=== PATIENT | male | born 1950 | race African-American/Black ===

== ENCOUNTER 2018-04-17 09:12 | Observation (INO) ==
[2018-04-17 10:29] LABS: Basophils % 0.5 % (0.0-0.8); Eosinophils # 0.1 10*3/uL (0.0-0.87); Eosinophils % 2.3 % (0.00-10.9); Hematocrit 41.2 VOL% (42.0-52.0); Hemoglobin 13.7 GM/DL (14.0-18.0); Immature Granulocytes % 0.5 %; Immature Granulocytes Absolute 0.03 #; Lymphocytes # 2.1 10*3/uL (1.4-4.0); Lymphocytes % 37.6 % (21.2-54.2); Mean Corpuscular HGB Conc 33.3 GM/DL (32-36); Mean Corpuscular Hemoglobin 31 PG (27-34); Mean Corpuscular Volume 93.2 FL (87-102); Mean Platelet Volume 11.4 FL (9.6-12.0); Monocytes # 0.5 10*3/uL (0.11-0.8); Monocytes % 8.5 % (1.7-12.7); Neutrophils # 2.8 10*3/uL (1.4-7.4); Neutrophils % 50.6 % (38.7-73.9); Platelet Count 195 T/CUMM (130-400); Red Blood Count 4.42 MC/CUMM (3.8-5.5); Red Cell Distribution Width 12.7 % (9.3-17.3); White Blood Count 5.6 T/CUMM (4-12)
[2018-04-17 10:43] LABS: PT Patient Result 11.2 SECS; Partial Thromboplastin Time 24.9 SECS (0-40)
[2018-04-17 10:58] LABS: Alanine Aminotransferase 14 U/L (16-61); Albumin 2.7 G/DL (3.4-5.0); Alkaline Phosphatase 151 U/L (45-117); Aspartate Amino Transferase 16 U/L (0-37); Bilirubin,Total < 0.39 MG/DL (0.2-1.0); Blood Urea Nitrogen 19 MG/DL (7-18); Glucose 88 MG/DL (74-106); Osmolality,Calculated 273.8 MOS/KG (273-304); Potassium 4.4 MMOL/L (3.5-5.1); Sodium 137 MMOL/L (136-145); Total Protein 9.2 G/DL (6.4-8.3)
[2018-04-17] MEDS ORDERED: ONDANSETRON 4 MG/2 ML VIAL IV PRN (11:38)
[2018-04-17] MEDS ORDERED: ACETAMINOPHEN 325 MG TABLET PEG PRN (11:38)
[2018-04-17] MEDS ORDERED: POLYVINYL ALCOHOL 1.4% OPH SOLN 15 ML BOTTLE BOTH EYES PRN (11:42)
[2018-04-17] MEDS ORDERED: LACTULOSE 20 GM/30 ML UDCUP PO ONE (12:03)
[2018-04-17] MEDS ORDERED: hydrALAZINE 20 MG/1 ML VIAL ONE (13:36)
[2018-04-17] MEDS ORDERED: levETIRAcetam 500 MG/5 ML VIAL IV ONE (13:57)
[2018-04-17 14:03] LABS: Apearance,Urine CLEAR (Clear); Bilirubin,Urine Negative (Negative); Blood, Urine Negative (Negative); Glucose,Urine (UA) Negative (Negative); Ketones,Urine Negative (Negative); Nitrite,Urine Negative (Negative); Protein,Urine Negative; RBC,Urine 2 /HPF (0-4); Urine Color Yellow (Yellow); Urine Specific Gravity 1.018 (1.001-1.035); WBC,Urine 1 /HPF (0-6)
[2018-04-17] MEDS: SODIUM CHLORIDE 0.45% 1,000 ML IV SCH (14:18)
[2018-04-17] MEDS: VALPROIC ACID 250 MG/5 ML UDCUP PEG SCH (18:29)
[2018-04-17] MEDS: BENZTROPINE 1 MG TABLET PEG SCH (21:12)
[2018-04-17] MEDS: PHENobarbital 30 MG TABLET PEG SCH (21:29)
[2018-04-18] MEDS: VALPROIC ACID 250 MG/5 ML UDCUP PEG SCH ×3 (02:16→18:04)
[2018-04-18 05:36] LABS: Basophils % 0.5 % (0.0-0.8); Eosinophils # 0.1 10*3/uL (0.0-0.87); Eosinophils % 1.7 % (0.00-10.9); Hematocrit 35.5 VOL% (42.0-52.0); Hemoglobin 11.8 GM/DL (14.0-18.0); Immature Granulocytes % 0.5 %; Immature Granulocytes Absolute 0.03 #; Lymphocytes # 1.8 10*3/uL (1.4-4.0); Lymphocytes % 30.2 % (21.2-54.2); Mean Corpuscular HGB Conc 33.2 GM/DL (32-36); Mean Corpuscular Hemoglobin 31 PG (27-34); Mean Platelet Volume 11.6 FL (9.6-12.0); Monocytes # 0.6 10*3/uL (0.11-0.8); Monocytes % 10.6 % (1.7-12.7); Neutrophils # 3.4 10*3/uL (1.4-7.4); Neutrophils % 56.5 % (38.7-73.9); Platelet Count 174 T/CUMM (130-400); Red Blood Count 3.86 MC/CUMM (3.8-5.5); Red Cell Distribution Width 13.2 % (9.3-17.3); White Blood Count 5.9 T/CUMM (4-12)
[2018-04-18 05:43] LABS: Albumin 2.3 G/DL (3.4-5.0); Bilirubin,Total 1.2 MG/DL (0.2-1.0); Calcium 8.3 MG/DL (8.5-10.1); Potassium 4.2 MMOL/L (3.5-5.1); Prealbumin 25.9 MG/DL (20-40); Total Protein 7.7 G/DL (6.4-8.3)
[2018-04-18] MEDS: SODIUM CHLORIDE 0.45% 1,000 ML IV SCH ×2 (06:00→22:11)
[2018-04-18 06:22] LABS: Platelet Estimate Decreased
[2018-04-18 06:23] LABS: Polychromasia Few
[2018-04-18] MEDS ORDERED: HYDROcod/ACETAMIN 7.5-325 MG/15 ML UDCUP PEG PRN (07:30)
[2018-04-18] MEDS ORDERED: LACTULOSE 20 GM/30 ML UDCUP PO ONE (08:30)
[2018-04-18 10:28] LABS: Hepatitis A Ab IgM Quant 0.13 Index; Hepatitis A Ab IgM Result Negative (Negative); Hepatitis B Core IgM Quant 0.13 Index; Hepatitis B Core IgM Result Negative (Negative); Hepatitis B Surface Ag Quant < 0.10 Index; Hepatitis B Surface Ag Result Negative (Negative); Hepatitis C Virus Ab Quant 0.13 Index; Hepatitis C Virus Ab Result Negative (Negative)
[2018-04-18] MEDS: ASPIRIN 325 MG TABLET PEG SCH (11:17)
[2018-04-18] MEDS: PHENobarbital 30 MG TABLET PEG SCH ×2 (11:17→22:24)
[2018-04-18] MEDS: FLUTICASONE 50 MCG NASAL SPRAY 16 GM BOTTLE BOTH NARES SCH (11:18)
[2018-04-18] MEDS: BENZTROPINE 1 MG TABLET PEG SCH (22:24)
[2018-04-19] MEDS: VALPROIC ACID 250 MG/5 ML UDCUP PEG SCH ×2 (01:21→10:18)
[2018-04-19 05:30] LABS: Albumin 2.3 G/DL (3.4-5.0); Bilirubin,Total 0.8 MG/DL (0.2-1.0); Calcium 8.3 MG/DL (8.5-10.1); Osmolality,Calculated 273.8 MOS/KG (273-304); Potassium 4.2 MMOL/L (3.5-5.1); Total Protein 7.7 G/DL (6.4-8.3)
[2018-04-19 08:21] LABS: Basophils % 0.4 % (0.0-0.8); Eosinophils # 0.1 10*3/uL (0.0-0.87); Eosinophils % 2.3 % (0.00-10.9); Hematocrit 34.5 VOL% (42.0-52.0); Hemoglobin 11.5 GM/DL (14.0-18.0); Immature Granulocytes % 0.5 %; Immature Granulocytes Absolute 0.03 #; Lymphocytes # 1.8 10*3/uL (1.4-4.0); Lymphocytes % 31.6 % (21.2-54.2); Mean Corpuscular HGB Conc 33.3 GM/DL (32-36); Mean Corpuscular Hemoglobin 31 PG (27-34); Mean Corpuscular Volume 92.5 FL (87-102); Mean Platelet Volume 10.5 FL (9.6-12.0); Monocytes # 0.6 10*3/uL (0.11-0.8); Monocytes % 10.9 % (1.7-12.7); Neutrophils # 3.1 10*3/uL (1.4-7.4); Neutrophils % 54.3 % (38.7-73.9); Platelet Count 176 T/CUMM (130-400); Red Blood Count 3.73 MC/CUMM (3.8-5.5); Red Cell Distribution Width 13.1 % (9.3-17.3); White Blood Count 5.7 T/CUMM (4-12)
[2018-04-19] MEDS ORDERED: CEFUROXIME 500 MG TABLET PEG SCH (09:00)
[2018-04-19] MEDS ORDERED: PANTOPRAZOLE 40 MG VIAL IV SCH (09:00)
[2018-04-19] MEDS ORDERED: levETIRAcetam LIQUID 100 MG/ML 30 ML/BOTTLE PO SCH (09:00)
[2018-04-19] MEDS: ASPIRIN 325 MG TABLET PEG SCH (10:18)
[2018-04-19] MEDS: FLUTICASONE 50 MCG NASAL SPRAY 16 GM BOTTLE BOTH NARES SCH (10:19)
[2018-04-19] MEDS: PHENobarbital 30 MG TABLET PEG SCH (11:09)
[2018-04-19 11:53] VITALS: BP 144/73
[2018-04-19] MEDS: SODIUM CHLORIDE 0.45% 1,000 ML IV SCH (15:00)
== END 2018-04-19 13:45 ==
LOC: EDBD → EDUNIT# → N.ED 09:12 → N.EDINP 09:12 → N.2W 15:27 → N.2E 16:59
PROVIDERS: ADMIT Internal Medicine; ATTEND Internal Medicine

== ENCOUNTER 2018-06-03 17:01 | Inpatient (IN) ==
[2018-06-03 17:30] LABS: Basophils % 0.3 % (0.0-0.8); Hemoglobin 14.6 GM/DL (14.0-18.0); Immature Granulocytes % 0.3 %; Immature Granulocytes Absolute 0.02 #; Lymphocytes # 2.1 10*3/uL (1.4-4.0); Lymphocytes % 32.1 % (21.2-54.2); Mean Corpuscular HGB Conc 33.2 GM/DL (32-36); Mean Corpuscular Hemoglobin 31 PG (27-34); Mean Corpuscular Volume 92.8 FL (87-102); Mean Platelet Volume 11.1 FL (9.6-12.0); Monocytes # 0.7 10*3/uL (0.11-0.8); Monocytes % 10.1 % (1.7-12.7); Neutrophils # 3.8 10*3/uL (1.4-7.4); Neutrophils % 57.2 % (38.7-73.9); Platelet Count 219 T/CUMM (130-400); Red Blood Count 4.74 MC/CUMM (3.8-5.5); Red Cell Distribution Width 14.3 % (9.3-17.3); White Blood Count 6.7 T/CUMM (4-12)
[2018-06-03] MEDS ORDERED: ALBUTEROL 2.5 MG/3 ML NEB RESP TX STA (17:37)
[2018-06-03 17:44] LABS: INR 1.2; PT Patient Result 12.6 SECS; Partial Thromboplastin Time 25.4 SECS (0-40)
[2018-06-03 17:50] LABS: Alanine Aminotransferase 24 U/L (16-61); Albumin 2.5 G/DL (3.4-5.0); Alkaline Phosphatase 128 U/L (45-117); Aspartate Amino Transferase 24 U/L (0-37); Blood Urea Nitrogen 25 MG/DL (7-18); Calcium 8.7 MG/DL (8.5-10.1); Glucose 172 MG/DL (74-106); Osmolality,Calculated 282.7 MOS/KG (273-304); Sodium 138 MMOL/L (136-145); Total Protein 8.6 G/DL (6.4-8.3)
[2018-06-03 17:53] LABS: Band Neutrophils 11 % (0-10); Lymphocytes 40 % (20-55); Metamyelocytes 1 %; Myelocytes 2 %; Platelet Estimate Adequate; Reactive Lymphocytes 1+; Segmented Neutrophils 38 % (50-85); Total Cells Counted 100
[2018-06-03] MEDS ORDERED: LACTATED RINGERS 1,000 ML IV SCH (18:00)
[2018-06-03 18:04] LABS: ABG Base Excess 3.1 MMOL/L (-2.5-2.5); ABG HCO3 26.8 MMOL/L (20-26); ABG PCO2 27.1 MM HG (35-48); ABG PH 7.555 (7.35-7.45); ABG TCO2 20.2 MMOL/L (23-27); Allen Test Positive
[2018-06-03] MEDS ORDERED: PIPERACILLIN/TAZOBACTAM 3,375 MG in SODIUM CHLORIDE 0.9% 100 ML IV ONE (18:52)
[2018-06-03] MEDS ORDERED: SODIUM CHLORIDE 0.9% 1,500 ML IV STA (19:07)
[2018-06-03] MEDS ORDERED: LEVALBUTEROL 0.63 MG/3 ML NEB RESP TX ONE (19:09)
[2018-06-03] MEDS ORDERED: ETOMIDATE 20 MG/10 ML VIAL IV STA (20:01)
[2018-06-03] MEDS ORDERED: ROCURONIUM 100 MG/10 ML VIAL IV STA (20:01)
[2018-06-03] MEDS ORDERED: ONDANSETRON 4 MG/2 ML VIAL IV PRN (20:15)
[2018-06-03] MEDS ORDERED: MORPHINE 4 MG/1 ML VIAL IV PRN (20:15)
[2018-06-03] MEDS ORDERED: PROMETHAZINE 25 MG/1 ML VIAL IM PRN (20:15)
[2018-06-03] MEDS ORDERED: ACETAMINOPHEN 325 MG TABLET PO PRN (20:15)
[2018-06-03] MEDS ORDERED: DOCUSATE SODIUM 100 MG CAPSULE PO PRN (20:15)
[2018-06-03] MEDS ORDERED: ALBUTEROL 2.5 MG/3 ML NEB RESP TX PRN (20:18)
[2018-06-03] MEDS ORDERED: SODIUM CHLORIDE 0.9% 2,450 ML IV ONE (20:24)
[2018-06-03] MEDS ORDERED: MIDAZOLAM 100 MG in SODIUM CHLORIDE 0.9% 80 ML IV PRN (20:42)
[2018-06-03 20:48] LABS: Thyroid Stimulating Hormone 1.33 uIU/ml (0.358-3.74)
[2018-06-03 20:56] LABS: ABG Base Excess 1.3 MMOL/L (-2.5-2.5); ABG HCO3 25.6 MMOL/L (20-26); ABG Oxygen Saturation 97.6 % (95-100); ABG PCO2 30.2 MM HG (35-48); ABG PH 7.497 (7.35-7.45); ABG PO2 96.9 MM HG (80-95); ABG TCO2 19.7 MMOL/L (23-27)
[2018-06-03] MEDS ORDERED: guaiFENesin/DM ER 600-30 MG TABLET PO SCH (21:00)
[2018-06-03] MEDS: MIDAZOLAM 100 MG in SODIUM CHLORIDE 0.9% 80 ML IV PRN (21:16)
[2018-06-03] MEDS ORDERED: VANCOMYCIN INJ 1,250 MG in SODIUM CHLORIDE 0.9% 250 ML IV SCH (21:30)
[2018-06-03] MEDS: LEVOFLOXACIN INJ 750 MG in PREMIX 1 EACH IV SCH (21:50)
[2018-06-03] MEDS: PHENobarbital 30 MG TABLET PEG SCH (21:52)
[2018-06-03] MEDS: VALPROIC ACID 250 MG/5 ML UDCUP PEG SCH (21:52)
[2018-06-03] MEDS: PHENYLEPHRINE DRIP 40 MG/250 ML PREMIX IV PRN (22:00)
[2018-06-03] MEDS: PROPOFOL 1,000 MG/100 ML BOTTLE IV SCH (22:40)
[2018-06-03] MEDS ORDERED: LEVALBUTEROL 0.31 MG/3 ML NEB RESP TX SCH (23:00)
[2018-06-03] MEDS: levETIRAcetam LIQUID 100 MG/ML 30 ML/BOTTLE PEG SCH (23:20)
[2018-06-03] MEDS: LEVALBUTEROL 0.63 MG/3 ML NEB RESP TX SCH (23:54)
[2018-06-04] MEDS ORDERED: ROCURONIUM 100 MG/10 ML VIAL IV ONE (02:45)
[2018-06-04] MEDS ORDERED: ETOMIDATE 20 MG/10 ML VIAL IV ONE (02:46)
[2018-06-04 03:02] LABS: Allen Test Positive; Pt O2 Delivery Device Ventilator
[2018-06-04 03:03] LABS: ABG Base Excess -21.2 MMOL/L (-2.5-2.5); ABG HCO3 7.8 MMOL/L (20-26); ABG PH 7.246 (7.35-7.45); ABG PO2 41.2 MM HG (80-95); ABG TCO2 5.8 MMOL/L (23-27)
[2018-06-04 03:05] LABS: ABG PCO2 13.3 MM HG (35-48)
[2018-06-04 03:50] LABS: Basophils % 0.3 % (0.0-0.8); Hematocrit 35.5 VOL% (42.0-52.0); Hemoglobin 11.6 GM/DL (14.0-18.0); Immature Granulocytes % 1.7 %; Lymphocytes # 2.6 10*3/uL (1.4-4.0); Lymphocytes % 43.2 % (21.2-54.2); Mean Corpuscular HGB Conc 32.7 GM/DL (32-36); Mean Corpuscular Hemoglobin 31 PG (27-34); Mean Corpuscular Volume 95.9 FL (87-102); Mean Platelet Volume 11.8 FL (9.6-12.0); Monocytes # 0.5 10*3/uL (0.11-0.8); Neutrophils # 2.8 10*3/uL (1.4-7.4); Neutrophils % 46.8 % (38.7-73.9); Platelet Count 176 T/CUMM (130-400); Red Cell Distribution Width 14.6 % (9.3-17.3)
[2018-06-04] MEDS: PIPERACILLIN/TAZOBACTAM 3,375 MG in SODIUM CHLORIDE 0.9% 100 ML IV SCH ×3 (03:51→20:40)
[2018-06-04] MEDS: SODIUM CHLORIDE 0.9% 1,000 ML IV SCH ×3 (03:52→19:21)
[2018-06-04 04:15] LABS: Albumin 1.8 G/DL (3.4-5.0); Calcium 7.7 MG/DL (8.5-10.1); Osmolality,Calculated 290.1 MOS/KG (273-304); Potassium 3.5 MMOL/L (3.5-5.1); Risk Ratio 1.63; Total Protein 6.5 G/DL (6.4-8.3); VLDL CHOLESTEROL 17.6 MG/DL
[2018-06-04] MEDS: LEVALBUTEROL 0.63 MG/3 ML NEB RESP TX SCH ×6 (04:19→23:16)
[2018-06-04 04:50] LABS: Allen Test Positive; Pt O2 Delivery Device Ventilator
[2018-06-04 04:51] LABS: ABG Base Excess -15.4 MMOL/L (-2.5-2.5); ABG Oxygen Saturation 98.8 % (95-100); ABG PCO2 23.6 MM HG (35-48); ABG PH 7.256 (7.35-7.45); ABG TCO2 9.4 MMOL/L (23-27)
[2018-06-04] MEDS: VALPROIC ACID 250 MG/5 ML UDCUP PEG SCH ×3 (04:56→20:45)
[2018-06-04] MEDS: levETIRAcetam LIQUID 100 MG/ML 30 ML/BOTTLE PEG SCH ×3 (04:57→20:47)
[2018-06-04 05:04] LABS: Apearance,Urine CLOUDY (Clear); Bacteria,Urine Occasional /HPF (Few); Bilirubin,Urine Small mg/dL (Negative); Blood, Urine Small mg/dL (Negative); Glucose,Urine (UA) 50 mg/dL (Negative); Granular Casts,Urine 6 /LPF (0-1); Hyaline Casts,Urine 6 /LPF (0-3); Ketones,Urine 5 mg/dL (Negative); Nitrite,Urine Negative (Negative); Protein,Urine 100 MG/DL; RBC,Urine 39 /HPF (0-4); Squamous Epithelial Cell,Urine Occasional /HPF (0-10); Urine Color Amber (Yellow); Urine Specific Gravity 1.036 (1.001-1.035); WBC,Urine 14 /HPF (0-6)
[2018-06-04] MEDS: LANSOPRAZOLE ODT 30 MG TABLET PER TUBE SCH (09:11)
[2018-06-04] MEDS: PHENobarbital 30 MG TABLET PEG SCH ×2 (09:11→20:44)
[2018-06-04] MEDS: ENOXAPARIN 40 MG/0.4 ML SYRINGE SUBCUT SCH (09:11)
[2018-06-04] MEDS: VANCOMYCIN INJ 1,250 MG in SODIUM CHLORIDE 0.9% 250 ML IV SCH ×2 (09:12→20:49)
[2018-06-04] MEDS: PHENYLEPHRINE DRIP 40 MG/250 ML PREMIX IV PRN (09:19)
[2018-06-04 11:08] LABS: Barbiturates Screen,Urine Positive (Negative); Benzodiazepines Screen,Urine Positive (Negative); Cannabinoid Screen,Urine Negative (Negative); Opiate Screen,Urine Negative (Negative); Phencyclidine Screen,Urine Negative (Negative)
[2018-06-04] MEDS: PHENYLEPHRINE INJ 160 MG in SODIUM CHLORIDE 0.9% 234 ML IV PRN (12:52)
[2018-06-04] MEDS ORDERED: POTASSIUM CHLORIDE 20 MEQ TABLET PO ONE (13:52)
[2018-06-04] MEDS ORDERED: DEXTROSE 50% 25 GM/50 ML SYRINGE IV PRN (15:01)
[2018-06-04] MEDS ORDERED: GLUCAGON 1 MG VIAL IM PRN (15:01)
[2018-06-04] MEDS: INSULIN REGULAR 100 UNIT/ML SUBCUT SCH ×2 (18:17→23:58)
[2018-06-04] MEDS: LEVOFLOXACIN INJ 750 MG in PREMIX 1 EACH IV SCH (20:45)
[2018-06-04] MEDS: PROPOFOL 1,000 MG/100 ML BOTTLE IV SCH (21:12)
[2018-06-05] MEDS: PHENYLEPHRINE INJ 160 MG in SODIUM CHLORIDE 0.9% 234 ML IV PRN (01:31)
[2018-06-05] MEDS: LEVALBUTEROL 0.63 MG/3 ML NEB RESP TX SCH ×5 (02:52→19:44)
[2018-06-05] MEDS: SODIUM CHLORIDE 0.9% 1,000 ML IV SCH ×3 (03:19→20:14)
[2018-06-05] MEDS: VALPROIC ACID 250 MG/5 ML UDCUP PEG SCH ×3 (04:55→20:30)
[2018-06-05] MEDS: levETIRAcetam LIQUID 100 MG/ML 30 ML/BOTTLE PEG SCH ×3 (04:55→20:30)
[2018-06-05] MEDS: PIPERACILLIN/TAZOBACTAM 3,375 MG in SODIUM CHLORIDE 0.9% 100 ML IV SCH ×3 (04:56→20:18)
[2018-06-05 05:01] LABS: Allen Test Positive; Pt O2 Delivery Device Ventilator
[2018-06-05 05:02] LABS: ABG HCO3 20.3 MMOL/L (20-26); ABG PCO2 27.9 MM HG (35-48); ABG PH 7.425 (7.35-7.45); ABG TCO2 16.7 MMOL/L (23-27)
[2018-06-05 05:07] LABS: Basophils # 0.1 10*3/uL (0.0-0.2); Basophils % 0.9 % (0.0-0.8); Hematocrit 28.7 VOL% (42.0-52.0); Hemoglobin 9.2 GM/DL (14.0-18.0); Immature Granulocytes % 1.1 %; Immature Granulocytes Absolute 0.13 #; Lymphocytes # 1.6 10*3/uL (1.4-4.0); Lymphocytes % 13.4 % (21.2-54.2); Mean Corpuscular HGB Conc 32.1 GM/DL (32-36); Mean Corpuscular Hemoglobin 32 PG (27-34); Mean Corpuscular Volume 98.3 FL (87-102); Mean Platelet Volume 11.7 FL (9.6-12.0); Monocytes % 8.4 % (1.7-12.7); Neutrophils # 9.1 10*3/uL (1.4-7.4); Neutrophils % 76.2 % (38.7-73.9); Platelet Count 141 T/CUMM (130-400); Red Blood Count 2.92 MC/CUMM (3.8-5.5); Red Cell Distribution Width 15.4 % (9.3-17.3)
[2018-06-05 05:24] LABS: INR 1.6; PT Patient Result 16.8 SECS; Partial Thromboplastin Time 35.2 SECS (0-40)
[2018-06-05] MEDS: INSULIN REGULAR 100 UNIT/ML SUBCUT SCH ×3 (05:29→18:00)
[2018-06-05 05:33] LABS: Prealbumin 10.9 MG/DL (20-40)
[2018-06-05 05:44] LABS: Band Neutrophils 14 % (0-10); Lymphocytes 13 % (20-55); Macrocytosis Slight; Metamyelocytes 3 %; Myelocytes 2 %; Segmented Neutrophils 59 % (50-85); Total Cells Counted 100
[2018-06-05 05:45] LABS: Platelet Estimate Adequate
[2018-06-05] MEDS ORDERED: MIDAZOLAM 10 MG/2 ML VIAL ONE (07:32)
[2018-06-05] MEDS ORDERED: MIDAZOLAM 2 MG/2 ML VIAL IV ONE ×2 (07:35→07:38)
[2018-06-05] MEDS: MIDAZOLAM 100 MG in SODIUM CHLORIDE 0.9% 80 ML IV PRN (08:20)
[2018-06-05] MEDS: PHENobarbital 30 MG TABLET PEG SCH ×2 (09:05→20:24)
[2018-06-05] MEDS: LANSOPRAZOLE ODT 30 MG TABLET PER TUBE SCH (09:05)
[2018-06-05] MEDS: VANCOMYCIN INJ 1,250 MG in SODIUM CHLORIDE 0.9% 250 ML IV SCH ×2 (09:06→20:30)
[2018-06-05] MEDS: ENOXAPARIN 40 MG/0.4 ML SYRINGE SUBCUT SCH (09:35)
[2018-06-05] MEDS: methylPREDNISolone SOD SUC 40 MG/1 ML VIAL IV SCH ×2 (16:44→23:55)
[2018-06-05 17:11] LABS: Calcium 7.3 MG/DL (8.5-10.1); Osmolality,Calculated 307.1 MOS/KG (273-304); Potassium 2.9 MMOL/L (3.5-5.1)
[2018-06-05] MEDS: POTASSIUM CHLORIDE RIDER 20 MEQ in PREMIX 1 EACH IV PRN ×2 (18:12→20:16)
[2018-06-05] MEDS: LEVOFLOXACIN INJ 750 MG in PREMIX 1 EACH IV SCH (20:36)
[2018-06-05] MEDS: PROPOFOL 1,000 MG/100 ML BOTTLE IV SCH (22:10)
[2018-06-05] MEDS: POTASSIUM CHLORIDE RIDER 10 MEQ in PREMIX 1 EACH IV PRN (22:24)
[2018-06-06] MEDS: MIDAZOLAM 100 MG in SODIUM CHLORIDE 0.9% 80 ML IV PRN ×2 (00:31→17:01)
[2018-06-06] MEDS: LEVALBUTEROL 0.63 MG/3 ML NEB RESP TX SCH ×7 (00:35→23:54)
[2018-06-06] MEDS: INSULIN REGULAR 100 UNIT/ML SUBCUT SCH ×4 (00:55→17:46)
[2018-06-06] MEDS: POTASSIUM CHLORIDE RIDER 20 MEQ in PREMIX 1 EACH IV PRN ×2 (02:38→04:49)
[2018-06-06 04:05] LABS: ABG Base Excess -4.3 MMOL/L (-2.5-2.5); ABG HCO3 20.8 MMOL/L (20-26); ABG Oxygen Saturation 99.7 % (95-100); ABG PH 7.508 (7.35-7.45); ABG TCO2 15.8 MMOL/L (23-27); Allen Test Positive; Pt O2 Delivery Device Ventilator
[2018-06-06] MEDS: levETIRAcetam LIQUID 100 MG/ML 30 ML/BOTTLE PEG SCH ×3 (04:50→20:31)
[2018-06-06] MEDS: VALPROIC ACID 250 MG/5 ML UDCUP PEG SCH ×3 (04:50→20:30)
[2018-06-06] MEDS: PIPERACILLIN/TAZOBACTAM 3,375 MG in SODIUM CHLORIDE 0.9% 100 ML IV SCH ×3 (04:51→20:30)
[2018-06-06 04:53] LABS: Basophils % 0.4 % (0.0-0.8); Hematocrit 26.5 VOL% (42.0-52.0); Hemoglobin 8.4 GM/DL (14.0-18.0); Immature Granulocytes Absolute 0.08 #; Lymphocytes # 0.9 10*3/uL (1.4-4.0); Lymphocytes % 11.1 % (21.2-54.2); Mean Corpuscular HGB Conc 31.7 GM/DL (32-36); Mean Corpuscular Hemoglobin 31 PG (27-34); Mean Corpuscular Volume 97.8 FL (87-102); Mean Platelet Volume 11.8 FL (9.6-12.0); Monocytes # 0.6 10*3/uL (0.11-0.8); Monocytes % 7.1 % (1.7-12.7); NRBC # 0.02 10*3/uL; Neutrophils # 6.5 10*3/uL (1.4-7.4); Neutrophils % 80.4 % (38.7-73.9); Red Blood Count 2.71 MC/CUMM (3.8-5.5); Red Cell Distribution Width 15.5 % (9.3-17.3)
[2018-06-06 04:57] LABS: Platelet Count 94 T/CUMM (130-400)
[2018-06-06] MEDS: SODIUM CHLORIDE 0.9% 1,000 ML IV SCH ×3 (05:03→21:00)
[2018-06-06 05:16] LABS: Albumin 1.5 G/DL (3.4-5.0); Bilirubin,Total 0.6 MG/DL (0.2-1.0); Calcium 7.5 MG/DL (8.5-10.1); Osmolality,Calculated 310.7 MOS/KG (273-304); Potassium 3.5 MMOL/L (3.5-5.1); Total Protein 6.3 G/DL (6.4-8.3)
[2018-06-06 06:23] LABS: Band Neutrophils 1 % (0-10); Segmented Neutrophils 86 % (50-85); Total Cells Counted 100
[2018-06-06 06:24] LABS: Hypochromasia 1+; Lymphocytes 8 % (20-55); Nucleated Red Blood Cells 2 (0-5); Platelet Estimate Decreased
[2018-06-06 06:25] LABS: Macrocytosis Slight
[2018-06-06] MEDS: methylPREDNISolone SOD SUC 40 MG/1 ML VIAL IV SCH ×2 (08:43→20:28)
[2018-06-06] MEDS: LANSOPRAZOLE ODT 30 MG TABLET PER TUBE SCH (08:43)
[2018-06-06] MEDS: PHENobarbital 30 MG TABLET PEG SCH ×2 (08:43→20:53)
[2018-06-06] MEDS: VANCOMYCIN INJ 1,250 MG in SODIUM CHLORIDE 0.9% 250 ML IV SCH (10:36)
[2018-06-06] MEDS: PROPOFOL 1,000 MG/100 ML BOTTLE IV SCH (20:18)
[2018-06-06] MEDS: LEVOFLOXACIN INJ 750 MG in PREMIX 1 EACH IV SCH (20:33)
[2018-06-06] MEDS: SODIUM CHLORIDE 0.45% 1,000 ML IV SCH (20:59)
[2018-06-07] MEDS: INSULIN REGULAR 100 UNIT/ML SUBCUT SCH ×4 (00:44→17:32)
[2018-06-07] MEDS: LEVALBUTEROL 0.63 MG/3 ML NEB RESP TX SCH ×6 (03:34→23:29)
[2018-06-07 03:37] LABS: Allen Test Positive; Pt O2 Delivery Device Ventilator
[2018-06-07 03:39] LABS: ABG Base Excess -5.3 MMOL/L (-2.5-2.5); ABG HCO3 18.2 MMOL/L (20-26); ABG Oxygen Saturation 84.9 % (95-100); ABG PCO2 27.9 MM HG (35-48); ABG PH 7.432 (7.35-7.45); ABG PO2 52.5 MM HG (80-95)
[2018-06-07 04:05] LABS: Basophils % 0.2 % (0.0-0.8); Hematocrit 24.5 VOL% (42.0-52.0); Hemoglobin 7.7 GM/DL (14.0-18.0); Immature Granulocytes % 1.5 %; Immature Granulocytes Absolute 0.13 #; Lymphocytes # 0.9 10*3/uL (1.4-4.0); Lymphocytes % 10.7 % (21.2-54.2); Mean Corpuscular HGB Conc 31.4 GM/DL (32-36); Mean Corpuscular Hemoglobin 31 PG (27-34); Mean Platelet Volume 12.3 FL (9.6-12.0); Monocytes # 0.6 10*3/uL (0.11-0.8); Monocytes % 7.6 % (1.7-12.7); Neutrophils # 6.7 10*3/uL (1.4-7.4); Red Blood Count 2.45 MC/CUMM (3.8-5.5); Red Cell Distribution Width 15.7 % (9.3-17.3); White Blood Count 8.4 T/CUMM (4-12)
[2018-06-07 04:12] LABS: Platelet Count 70 T/CUMM (130-400)
[2018-06-07 04:30] LABS: Calcium 7.5 MG/DL (8.5-10.1); Osmolality,Calculated 313.6 MOS/KG (273-304); Potassium 2.9 MMOL/L (3.5-5.1)
[2018-06-07 04:41] LABS: Band Neutrophils 2 % (0-10); Hypochromasia 1+; Lymphocytes 7 % (20-55); Platelet Estimate Decreased; Segmented Neutrophils 87 % (50-85); Total Cells Counted 100
[2018-06-07 04:42] LABS: Ovalocytes Slight
[2018-06-07] MEDS: SODIUM CHLORIDE 0.45% 1,000 ML IV SCH (04:44)
[2018-06-07] MEDS: POTASSIUM CHLORIDE RIDER 20 MEQ in PREMIX 1 EACH IV PRN ×3 (04:53→16:52)
[2018-06-07] MEDS: MIDAZOLAM 100 MG in SODIUM CHLORIDE 0.9% 80 ML IV PRN ×2 (05:00→17:53)
[2018-06-07] MEDS: PIPERACILLIN/TAZOBACTAM 3,375 MG in SODIUM CHLORIDE 0.9% 100 ML IV SCH ×3 (05:03→20:34)
[2018-06-07] MEDS: VALPROIC ACID 250 MG/5 ML UDCUP PEG SCH ×3 (05:19→20:40)
[2018-06-07] MEDS: levETIRAcetam LIQUID 100 MG/ML 30 ML/BOTTLE PEG SCH ×3 (05:21→20:40)
[2018-06-07] MEDS: PHENobarbital 30 MG TABLET PEG SCH ×2 (08:38→20:39)
[2018-06-07] MEDS: LANSOPRAZOLE ODT 30 MG TABLET PER TUBE SCH (08:38)
[2018-06-07] MEDS: ENOXAPARIN 40 MG/0.4 ML SYRINGE SUBCUT SCH (08:38)
[2018-06-07] MEDS: methylPREDNISolone SOD SUC 40 MG/1 ML VIAL IV SCH ×2 (08:38→20:30)
[2018-06-07] MEDS: POTASSIUM CHLORIDE RIDER 10 MEQ in PREMIX 1 EACH IV PRN (10:45)
[2018-06-07] MEDS: PROPOFOL 1,000 MG/100 ML BOTTLE IV SCH (20:38)
[2018-06-07] MEDS: ZINC OXIDE PASTE 113 GM TUBE TOP SCH (21:35)
[2018-06-07] MEDS ORDERED: LORazepam 2 MG/1 ML VIAL ONE (22:05)
[2018-06-07] MEDS: LORazepam 2 MG/1 ML VIAL IV PRN (22:06)
[2018-06-08] MEDS: INSULIN REGULAR 100 UNIT/ML SUBCUT SCH ×3 (00:12→11:56)
[2018-06-08] MEDS: LEVALBUTEROL 0.63 MG/3 ML NEB RESP TX SCH ×3 (02:57→11:05)
[2018-06-08 03:22] LABS: ABG Base Excess -4.3 MMOL/L (-2.5-2.5); ABG HCO3 20.9 MMOL/L (20-26); ABG Oxygen Saturation 96.3 % (95-100); ABG PCO2 27.6 MM HG (35-48); ABG PH 7.433 (7.35-7.45); ABG PO2 86.9 MM HG (80-95); ABG TCO2 15.7 MMOL/L (23-27); Allen Test Positive; Pt O2 Delivery Device Ventilator
[2018-06-08 04:16] LABS: Basophils % 0.2 % (0.0-0.8); Hematocrit 23.8 VOL% (42.0-52.0); Hemoglobin 7.5 GM/DL (14.0-18.0); Immature Granulocytes Absolute 0.57 #; Lymphocytes # 1.5 10*3/uL (1.4-4.0); Lymphocytes % 15.5 % (21.2-54.2); Mean Corpuscular HGB Conc 31.5 GM/DL (32-36); Mean Corpuscular Hemoglobin 31 PG (27-34); Mean Corpuscular Volume 98.8 FL (87-102); Monocytes % 10.3 % (1.7-12.7); Neutrophils # 6.5 10*3/uL (1.4-7.4); Platelet Count 67 T/CUMM (130-400); Red Blood Count 2.41 MC/CUMM (3.8-5.5); Red Cell Distribution Width 15.7 % (9.3-17.3); White Blood Count 9.5 T/CUMM (4-12)
[2018-06-08 04:34] LABS: Calcium 7.4 MG/DL (8.5-10.1); Osmolality,Calculated 315.3 MOS/KG (273-304); Potassium 3.1 MMOL/L (3.5-5.1)
[2018-06-08] MEDS: LORazepam 2 MG/1 ML VIAL IV PRN (04:37)
[2018-06-08 04:42] LABS: Band Neutrophils 6 % (0-10); Hypochromasia 1+; Lymphocytes 20 % (20-55); Myelocytes 1 %; Platelet Estimate Decreased; Segmented Neutrophils 65 % (50-85); Total Cells Counted 100
[2018-06-08] MEDS: PIPERACILLIN/TAZOBACTAM 3,375 MG in SODIUM CHLORIDE 0.9% 100 ML IV SCH ×2 (04:44→13:44)
[2018-06-08] MEDS: VALPROIC ACID 250 MG/5 ML UDCUP PEG SCH ×2 (04:49→13:45)
[2018-06-08] MEDS: levETIRAcetam LIQUID 100 MG/ML 30 ML/BOTTLE PEG SCH ×2 (04:49→13:45)
[2018-06-08] MEDS: POTASSIUM CHLORIDE RIDER 20 MEQ in PREMIX 1 EACH IV PRN ×2 (05:24→07:28)
[2018-06-08] MEDS: MIDAZOLAM 100 MG in SODIUM CHLORIDE 0.9% 80 ML IV PRN (08:00)
[2018-06-08] MEDS: LANSOPRAZOLE ODT 30 MG TABLET PER TUBE SCH (08:14)
[2018-06-08] MEDS: methylPREDNISolone SOD SUC 40 MG/1 ML VIAL IV SCH (08:14)
[2018-06-08] MEDS: PHENobarbital 30 MG TABLET PEG SCH (08:14)
[2018-06-08] MEDS: ZINC OXIDE PASTE 113 GM TUBE TOP SCH (08:14)
[2018-06-08 10:12] VITALS: BP 155/83
[2018-06-09] MEDS ORDERED: predniSONE 20 MG TABLET PO SCH (09:00)
== END 2018-06-08 14:30 | DRG 207 ==
LOC: EDBD → EDUNIT# → N.ED 17:01 → N.EDINP 20:14 → SUATTDRO 20:14 → N.CC 21:05
PROVIDERS: ADMIT Internal Medicine; ATTEND Hospitalist

== ENCOUNTER 2019-09-19 22:55 | Inpatient (IN) ==
[2019-09-19] MEDS ORDERED: ONDANSETRON 4 MG/2 ML VIAL IV STA (23:12)
[2019-09-19] MEDS ORDERED: methylPREDNISolone SOD SUC 125 MG/2 ML VIAL IV STA (23:12)
[2019-09-19] MEDS ORDERED: FUROSEMIDE 100 MG/10 ML VIAL IV STA (23:12)
[2019-09-19] MEDS ORDERED: PANTOPRAZOLE 40 MG VIAL IV STA (23:19)
[2019-09-19] MEDS ORDERED: ALBUTEROL NEB SOLN 5 MG/ML 20 ML/BOTTLE CONT NEB SCH (23:30)
[2019-09-19 23:36] LABS: Basophils % 0.1 % (0.0-0.8); Eosinophils % 0.1 % (0.00-10.9); Hematocrit 36.8 VOL% (42.0-52.0); Hemoglobin 11.7 GM/DL (14.0-18.0); Immature Granulocytes % 0.9 %; Immature Granulocytes Absolute 0.09 #; Lymphocytes # 2.1 10*3/uL (1.4-4.0); Lymphocytes % 20.7 % (21.2-54.2); Mean Corpuscular HGB Conc 31.8 GM/DL (32-36); Mean Corpuscular Volume 98.1 FL (87-102); Mean Platelet Volume 12.5 FL (9.6-12.0); Monocytes % 6.2 % (1.7-12.7); Platelet Count 164 T/CUMM (130-400); Red Blood Count 3.75 MC/CUMM (3.8-5.5); Red Cell Distribution Width 14.4 % (9.3-17.3)
[2019-09-19 23:38] LABS: Allen Test Positive
[2019-09-19 23:39] LABS: ABG Base Excess 6.4 MMOL/L (-2.5-2.5); ABG HCO3 30.2 MMOL/L (20-26); ABG Oxygen Saturation 97.3 % (95-100); ABG PCO2 37.4 MM HG (35-48); ABG PH 7.508 (7.35-7.45); ABG PO2 85.7 MM HG (80-95); ABG TCO2 26.2 MMOL/L (23-27)
[2019-09-19] MEDS ORDERED: PIPERACILLIN/TAZOBACTAM 3,375 MG in SODIUM CHLORIDE 0.9% 100 ML IV STA (23:40)
[2019-09-19 23:46] LABS: PT Patient Result 10.8 SECS (9.8-11.9)
[2019-09-19 23:55] LABS: Alanine Aminotransferase 33 U/L (16-61); Albumin 2.4 G/DL (3.4-5.0); Alkaline Phosphatase 96 U/L (45-117); Aspartate Amino Transferase 47 U/L (0-37); Bilirubin,Total < 0.39 MG/DL (0.2-1.0); Blood Urea Nitrogen 28 MG/DL (7-18); Calcium 8.9 MG/DL (8.5-10.1); Estimated Glom Filtration Rate 110 ML/MIN; Glucose 163 MG/DL (74-106); Osmolality,Calculated 286.5 MOS/KG (273-304); Total Protein 8.9 G/DL (6.4-8.3)
[2019-09-20] MEDS ORDERED: SODIUM CHLORIDE 0.9% 2,000 ML IV ONE (00:32)
[2019-09-20] MEDS ORDERED: ZALEPLON 5 MG CAPSULE PEG PRN (00:34)
[2019-09-20] MEDS ORDERED: GLUCAGON 1 MG VIAL IM PRN (00:34)
[2019-09-20] MEDS ORDERED: guaiFENesin/DM ER 600-30 MG TABLET PO PRN (00:34)
[2019-09-20] MEDS ORDERED: MORPHINE 4 MG/1 ML VIAL IV PRN (00:34)
[2019-09-20] MEDS ORDERED: DEXTROSE 50% 25 GM/50 ML VIAL IV PRN (00:34)
[2019-09-20] MEDS ORDERED: hydrALAZINE 20 MG/1 ML VIAL IV PRN (00:34)
[2019-09-20] MEDS ORDERED: PROMETHAZINE 25 MG/1 ML VIAL IM PRN (00:34)
[2019-09-20] MEDS ORDERED: ONDANSETRON 4 MG/2 ML VIAL IV PRN (00:34)
[2019-09-20] MEDS ORDERED: diphenhydrAMINE CAP 25 MG CAPSULE PO PRN (00:34)
[2019-09-20] MEDS ORDERED: NICOTINE 21 MG/24 HR PATCH TRANSDERM PRN (00:34)
[2019-09-20 01:08] LABS: Apearance,Urine CLEAR (Clear); Bacteria,Urine Occasional /HPF (Few); Bilirubin,Urine Negative (Negative); Blood, Urine Negative (Negative); Glucose,Urine (UA) Negative (Negative); Ketones,Urine 5 mg/dL (Negative); Mucus,Urine Occasional /LPF (Occasional); Nitrite,Urine Negative (Negative); Protein,Urine >=500 MG/DL; RBC,Urine 26 /HPF (0-4); Renal Epithelial Cells,Urine Occasional /HPF (<1); Squamous Epithelial Cell,Urine Occasional /HPF (0-10); Urine Color Amber (Yellow); Urine Specific Gravity 1.033 (1.001-1.035); Urine Urobilinogen < 2.0 EU/DL (0.2-1.0); WBC,Urine 2 /HPF (0-6)
[2019-09-20] MEDS: AZITHROMYCIN INJ 500 MG in SODIUM CHLORIDE 0.9% 250 ML IV SCH (02:26)
[2019-09-20] MEDS: ACETAMINOPHEN 325 MG TABLET PEG PRN ×2 (02:31→08:29)
[2019-09-20] MEDS: SODIUM CHLORIDE 0.9% 1,000 ML IV SCH ×3 (03:14→23:26)
[2019-09-20] MEDS ORDERED: VANCOMYCIN INJ 1,750 MG in SODIUM CHLORIDE 0.9% 500 ML IV SCH (05:00)
[2019-09-20 06:24] LABS: Calcium 8.1 MG/DL (8.5-10.1); Osmolality,Calculated 292.4 MOS/KG (273-304)
[2019-09-20] MEDS ORDERED: SODIUM CHLORIDE 0.9% 1,000 ML IV ONE ×2 (07:29→15:29)
[2019-09-20] MEDS ORDERED: levETIRAcetam LIQUID 100 MG/ML 30 ML/BOTTLE PEG SCH ×2 (08:00→09:00)
[2019-09-20 08:15] LABS: ABG Base Excess 2.6 MMOL/L (-2.5-2.5); ABG HCO3 26.7 MMOL/L (20-26); ABG PCO2 37.1 MM HG (35-48); ABG PH 7.459 (7.35-7.45); ABG PO2 77.6 MM HG (80-95); ABG TCO2 23.8 MMOL/L (23-27)
[2019-09-20 08:22] LABS: Ferritin 1596.5 ng/ml (26-388)
[2019-09-20] MEDS: INSULIN LISPRO 100 UNIT/ML SUBCUT SCH ×4 (08:29→21:40)
[2019-09-20] MEDS: ENOXAPARIN 40 MG/0.4 ML SYRINGE SUBCUT SCH (08:29)
[2019-09-20] MEDS ORDERED: OMEPRAZOLE ODT 20 MG TABLET PEG SCH (09:00)
[2019-09-20] MEDS ORDERED: PANTOPRAZOLE 40 MG TABLET PO SCH (09:00)
[2019-09-20] MEDS: PIPERACILLIN/TAZOBACTAM 3,375 MG in SODIUM CHLORIDE 0.9% 100 ML IV SCH ×2 (09:20→17:41)
[2019-09-20 09:49] LABS: Basophils % 0.1 % (0.0-0.8); Eosinophils % 0.4 % (0.00-10.9); Hematocrit 32.2 VOL% (42.0-52.0); Hemoglobin 9.9 GM/DL (14.0-18.0); Immature Granulocytes % 0.5 %; Immature Granulocytes Absolute 0.05 #; Lymphocytes # 1.1 10*3/uL (1.4-4.0); Lymphocytes % 11.4 % (21.2-54.2); Mean Corpuscular HGB Conc 30.7 GM/DL (32-36); Mean Corpuscular Volume 100.6 FL (87-102); Mean Platelet Volume 12.8 FL (9.6-12.0); Monocytes % 9.3 % (1.7-12.7); Neutrophils % 78.3 % (38.7-73.9); Red Cell Distribution Width 14.6 % (9.3-17.3); White Blood Count 9.5 T/CUMM (4-12)
[2019-09-20 09:51] LABS: Platelet Count 113 T/CUMM (130-400)
[2019-09-20 10:34] LABS: Band Neutrophils 11 % (0-10); Lymphocytes 7 % (20-55); Myelocytes 1 %; Segmented Neutrophils 71 % (50-85); Total Cells Counted 100
[2019-09-20 10:35] LABS: Hypochromasia 1+
[2019-09-20] MEDS ORDERED: guaiFENesin 200 MG/10 ML UDCUP PEG PRN (18:27)
[2019-09-20] MEDS: CALCIUM (CARBONATE)/VITAMIN D 600 MG-400 UNIT TABLET PEG SCH (22:23)
[2019-09-20] MEDS: CETIRIZINE 10 MG TABLET PEG SCH (22:24)
[2019-09-20] MEDS: PHENobarbital 30 MG TABLET PEG SCH (22:25)
[2019-09-20] MEDS: levETIRAcetam LIQUID 100 MG/ML 30 ML/BOTTLE PEG SCH (22:25)
[2019-09-20] MEDS: VALPROIC ACID 250 MG/5 ML UDCUP PEG SCH (22:27)
[2019-09-20] MEDS: OMEPRAZOLE ODT 20 MG TABLET PEG SCH (22:30)
[2019-09-21] MEDS: AZITHROMYCIN INJ 500 MG in SODIUM CHLORIDE 0.9% 250 ML IV SCH (00:50)
[2019-09-21] MEDS: PIPERACILLIN/TAZOBACTAM 3,375 MG in SODIUM CHLORIDE 0.9% 100 ML IV SCH ×3 (01:55→16:31)
[2019-09-21] MEDS: SODIUM CHLORIDE 0.9% 1,000 ML IV SCH ×2 (02:00→15:24)
[2019-09-21 04:29] LABS: ABG HCO3 28.2 MMOL/L (20-26); ABG Oxygen Saturation 90.6 % (95-100); ABG PH 7.456 (7.35-7.45); ABG PO2 60.2 MM HG (80-95); ABG TCO2 29.5 MMOL/L (23-27); Allen Test Positive
[2019-09-21 05:38] LABS: Eosinophils % 0.1 % (0.00-10.9); Hematocrit 29.6 VOL% (42.0-52.0); Hemoglobin 9.3 GM/DL (14.0-18.0); Immature Granulocytes % 0.6 %; Immature Granulocytes Absolute 0.04 #; Lymphocytes # 1.5 10*3/uL (1.4-4.0); Lymphocytes % 20.5 % (21.2-54.2); Mean Corpuscular HGB Conc 31.4 GM/DL (32-36); Mean Corpuscular Volume 98.3 FL (87-102); Monocytes % 5.7 % (1.7-12.7); Neutrophils % 73.1 % (38.7-73.9); Platelet Count 130 T/CUMM (130-400); Red Blood Count 3.01 MC/CUMM (3.8-5.5); Red Cell Distribution Width 14.3 % (9.3-17.3); White Blood Count 7.1 T/CUMM (4-12)
[2019-09-21 06:07] LABS: Calcium 7.6 MG/DL (8.5-10.1); Osmolality,Calculated 291.7 MOS/KG (273-304)
[2019-09-21] MEDS: VALPROIC ACID 250 MG/5 ML UDCUP PEG SCH ×3 (06:25→21:37)
[2019-09-21] MEDS: INSULIN LISPRO 100 UNIT/ML SUBCUT SCH ×3 (08:21→18:31)
[2019-09-21] MEDS: PHENobarbital 30 MG TABLET PEG SCH ×3 (08:22→21:35)
[2019-09-21] MEDS: ENOXAPARIN 40 MG/0.4 ML SYRINGE SUBCUT SCH (08:22)
[2019-09-21] MEDS: OMEPRAZOLE ODT 20 MG TABLET PEG SCH (08:22)
[2019-09-21] MEDS: CALCIUM (CARBONATE)/VITAMIN D 600 MG-400 UNIT TABLET PEG SCH ×2 (08:22→21:34)
[2019-09-21] MEDS: levETIRAcetam LIQUID 100 MG/ML 30 ML/BOTTLE PEG SCH ×2 (08:24→21:34)
[2019-09-21 08:35] LABS: Band Neutrophils 15 % (0-10); Lymphocytes 19 % (20-55); Metamyelocytes 2 %; Segmented Neutrophils 58 % (50-85); Total Cells Counted 100
[2019-09-21 08:36] LABS: Hypochromasia 1+
[2019-09-21 08:37] LABS: Microcytosis Slight; Platelet Estimate Adequate
[2019-09-21] MEDS ORDERED: ZINC SULFATE 220 MG CAPSULE PO SCH (09:30)
[2019-09-21] MEDS: ACETAMINOPHEN 325 MG/10.15 ML UDCUP PEG PRN ×2 (10:11→17:25)
[2019-09-21] MEDS ORDERED: DEXTROSE 50% 25 GM/50 ML VIAL IV PRN (10:42)
[2019-09-21] MEDS: ZINC SULFATE 220 MG CAPSULE PO SCH (10:45)
[2019-09-21] MEDS: VANCOMYCIN INJ 1,250 MG in SODIUM CHLORIDE 0.9% 250 ML IV SCH (13:22)
[2019-09-21] MEDS: ACETAMINOPHEN 325 MG/10.15 ML UDCUP PER TUBE PRN (21:30)
[2019-09-21] MEDS: CETIRIZINE 10 MG TABLET PEG SCH (21:35)
[2019-09-22] MEDS: VANCOMYCIN INJ 1,250 MG in SODIUM CHLORIDE 0.9% 250 ML IV SCH ×2 (00:07→11:45)
[2019-09-22] MEDS: INSULIN LISPRO 100 UNIT/ML SUBCUT SCH ×4 (01:18→18:07)
[2019-09-22] MEDS: PIPERACILLIN/TAZOBACTAM 3,375 MG in SODIUM CHLORIDE 0.9% 100 ML IV SCH ×3 (01:19→16:51)
[2019-09-22] MEDS: ACETAMINOPHEN 325 MG/10.15 ML UDCUP PER TUBE PRN ×3 (01:20→09:28)
[2019-09-22] MEDS: SODIUM CHLORIDE 0.9% 1,000 ML IV SCH ×2 (03:04→16:50)
[2019-09-22 04:51] LABS: Allen Test Positive; Pt O2 Delivery Device Other
[2019-09-22 04:52] LABS: ABG Base Excess 3.3 MMOL/L (-2.5-2.5); ABG HCO3 27.3 MMOL/L (20-26); ABG Oxygen Saturation 96.2 % (95-100); ABG PCO2 36.7 MM HG (35-48); ABG PH 7.473 (7.35-7.45); ABG PO2 74.2 MM HG (80-95); ABG TCO2 24.8 MMOL/L (23-27)
[2019-09-22 05:36] LABS: Eosinophils % 0.4 % (0.00-10.9); Hematocrit 24.7 VOL% (42.0-52.0); Hemoglobin 8.1 GM/DL (14.0-18.0); Immature Granulocytes % 0.7 %; Immature Granulocytes Absolute 0.04 #; Lymphocytes # 1.4 10*3/uL (1.4-4.0); Lymphocytes % 24.9 % (21.2-54.2); Mean Corpuscular HGB Conc 32.8 GM/DL (32-36); Mean Corpuscular Volume 103.3 FL (87-102); Mean Platelet Volume 12.6 FL (9.6-12.0); Monocytes % 5.2 % (1.7-12.7); Neutrophils % 68.8 % (38.7-73.9); Platelet Count 153 T/CUMM (130-400); Red Blood Count 2.39 MC/CUMM (3.8-5.5); Red Cell Distribution Width 14.6 % (9.3-17.3); White Blood Count 5.6 T/CUMM (4-12)
[2019-09-22 05:57] LABS: Alanine Aminotransferase 13 U/L (16-61); Albumin 1.5 G/DL (3.4-5.0); Alkaline Phosphatase 52 U/L (45-117); Aspartate Amino Transferase 23 U/L (0-37); Bilirubin,Total < 0.39 MG/DL (0.2-1.0); Blood Urea Nitrogen 13 MG/DL (7-18); Calcium 7.1 MG/DL (8.5-10.1); Estimated Glom Filtration Rate 109 ML/MIN; Ferritin 775.1 ng/ml (26-388); Glucose 132 MG/DL (74-106); Total Protein 5.8 G/DL (6.4-8.3)
[2019-09-22 05:59] LABS: Calcium 7.5 MG/DL (8.5-10.1); Osmolality,Calculated 300.9 MOS/KG (273-304)
[2019-09-22] MEDS: VALPROIC ACID 250 MG/5 ML UDCUP PEG SCH ×3 (06:11→21:21)
[2019-09-22 07:34] LABS: Band Neutrophils 29 % (0-10); Eosinophils 2 % (0-10); Hypochromasia Slight; Lymphocytes 29 % (20-55); Metamyelocytes 1 %; Nucleated Red Blood Cells 1 (0-5); Platelet Estimate Normal; Segmented Neutrophils 34 % (50-85); Total Cells Counted 100
[2019-09-22] MEDS: ENOXAPARIN 40 MG/0.4 ML SYRINGE SUBCUT SCH (09:29)
[2019-09-22] MEDS: levETIRAcetam LIQUID 100 MG/ML 30 ML/BOTTLE PEG SCH ×2 (09:29→21:19)
[2019-09-22] MEDS: POTASSIUM CHLORIDE 20 MEQ/15 ML UDCUP PER TUBE PRN ×3 (09:29→14:26)
[2019-09-22] MEDS: CALCIUM (CARBONATE)/VITAMIN D 600 MG-400 UNIT TABLET PEG SCH ×2 (09:30→21:19)
[2019-09-22] MEDS: PHENobarbital 30 MG TABLET PEG SCH ×3 (09:30→21:21)
[2019-09-22] MEDS: OMEPRAZOLE ODT 20 MG TABLET PEG SCH (09:30)
[2019-09-22 10:21] LABS: % Iron Saturation 10.1 % (18-50)
[2019-09-22 10:45] LABS: Folate 23.3 NG/ML (5.4-24.0)
[2019-09-22] MEDS: ACETAMINOPHEN 650 MG SUPP RECTAL PRN ×2 (16:51→22:20)
[2019-09-22] MEDS: CETIRIZINE 10 MG TABLET PEG SCH (21:20)
[2019-09-23] MEDS: VANCOMYCIN INJ 1,250 MG in SODIUM CHLORIDE 0.9% 250 ML IV SCH ×2 (00:03→13:45)
[2019-09-23] MEDS: INSULIN LISPRO 100 UNIT/ML SUBCUT SCH ×4 (00:57→18:41)
[2019-09-23] MEDS: PIPERACILLIN/TAZOBACTAM 3,375 MG in SODIUM CHLORIDE 0.9% 100 ML IV SCH ×3 (01:31→17:40)
[2019-09-23] MEDS: ACETAMINOPHEN 325 MG/10.15 ML UDCUP PER TUBE PRN ×4 (02:02→20:45)
[2019-09-23 04:00] LABS: ABG Base Excess 1.6 MMOL/L (-2.5-2.5); ABG HCO3 24.3 MMOL/L (20-26); ABG Oxygen Saturation 90.1 % (95-100); ABG PCO2 30.8 MM HG (35-48); ABG PH 7.515 (7.35-7.45); ABG PO2 52.6 MM HG (80-95); ABG TCO2 25.3 MMOL/L (23-27); Allen Test Positive
[2019-09-23] MEDS: VALPROIC ACID 250 MG/5 ML UDCUP PEG SCH ×3 (05:38→21:00)
[2019-09-23 05:41] LABS: Basophils % 0.2 % (0.0-0.8); Eosinophils % 0.7 % (0.00-10.9); Hematocrit 24.3 VOL% (42.0-52.0); Hemoglobin 8.3 GM/DL (14.0-18.0); Immature Granulocytes % 1.8 %; Immature Granulocytes Absolute 0.08 #; Lymphocytes # 0.7 10*3/uL (1.4-4.0); Lymphocytes % 16.5 % (21.2-54.2); Mean Corpuscular HGB Conc 34.2 GM/DL (32-36); Mean Corpuscular Volume 101.7 FL (87-102); Mean Platelet Volume 12.3 FL (9.6-12.0); Monocytes % 3.9 % (1.7-12.7); Neutrophils % 76.9 % (38.7-73.9); Platelet Count 171 T/CUMM (130-400); Red Blood Count 2.39 MC/CUMM (3.8-5.5); Red Cell Distribution Width 14.8 % (9.3-17.3); White Blood Count 4.4 T/CUMM (4-12)
[2019-09-23] MEDS: SODIUM CHLORIDE 0.9% 1,000 ML IV SCH (05:55)
[2019-09-23 06:06] LABS: Anisocytosis 1+; Band Neutrophils 39 % (0-10); Eosinophils 1 % (0-10); Lymphocytes 18 % (20-55); Metamyelocytes 4 %; Nucleated Red Blood Cells 1 (0-5); Platelet Estimate Normal; Segmented Neutrophils 35 % (50-85); Total Cells Counted 100
[2019-09-23 06:32] LABS: Calcium 7.9 MG/DL (8.5-10.1); Osmolality,Calculated 306.6 MOS/KG (273-304)
[2019-09-23] MEDS: OMEPRAZOLE ODT 20 MG TABLET PEG SCH (09:42)
[2019-09-23] MEDS: PHENobarbital 30 MG TABLET PEG SCH ×3 (09:42→20:45)
[2019-09-23] MEDS: ENOXAPARIN 40 MG/0.4 ML SYRINGE SUBCUT SCH (09:42)
[2019-09-23] MEDS: POTASSIUM CHLORIDE 20 MEQ/15 ML UDCUP PER TUBE PRN ×4 (09:42→17:40)
[2019-09-23] MEDS: levETIRAcetam LIQUID 100 MG/ML 30 ML/BOTTLE PEG SCH ×2 (09:42→20:45)
[2019-09-23] MEDS: CALCIUM (CARBONATE)/VITAMIN D 600 MG-400 UNIT TABLET PEG SCH ×2 (09:42→20:45)
[2019-09-23] MEDS: ZINC SULFATE 220 MG CAPSULE PO SCH (10:46)
[2019-09-23] MEDS ORDERED: FUROSEMIDE 20 MG/2 ML VIAL IV ONE (12:00)
[2019-09-23] MEDS: CETIRIZINE 10 MG TABLET PEG SCH (20:45)
[2019-09-24] MEDS: ACETAMINOPHEN 325 MG/10.15 ML UDCUP PER TUBE PRN ×3 (00:45→17:45)
[2019-09-24] MEDS: POTASSIUM CHLORIDE 20 MEQ/15 ML UDCUP PER TUBE PRN (00:45)
[2019-09-24] MEDS: PIPERACILLIN/TAZOBACTAM 3,375 MG in SODIUM CHLORIDE 0.9% 100 ML IV SCH ×3 (00:45→17:35)
[2019-09-24] MEDS: INSULIN LISPRO 100 UNIT/ML SUBCUT SCH ×4 (00:45→18:46)
[2019-09-24] MEDS: VALPROIC ACID 250 MG/5 ML UDCUP PEG SCH ×3 (05:25→21:00)
[2019-09-24 05:48] LABS: Basophils % 0.8 % (0.0-0.8); Eosinophils % 0.3 % (0.00-10.9); Hematocrit 24.2 VOL% (42.0-52.0); Immature Granulocytes % 1.4 %; Immature Granulocytes Absolute 0.05 #; Lymphocytes # 0.7 10*3/uL (1.4-4.0); Lymphocytes % 19.8 % (21.2-54.2); Mean Corpuscular HGB Conc 37.2 GM/DL (32-36); Mean Corpuscular Volume 105.2 FL (87-102); Mean Platelet Volume 12.3 FL (9.6-12.0); Monocytes % 2.7 % (1.7-12.7); Platelet Count 204 T/CUMM (130-400); Red Cell Distribution Width 15.3 % (9.3-17.3); White Blood Count 3.7 T/CUMM (4-12)
[2019-09-24 06:08] LABS: Calcium 8.2 MG/DL (8.5-10.1); Osmolality,Calculated 311.3 MOS/KG (273-304)
[2019-09-24 06:31] LABS: Band Neutrophils 15 % (0-10); Hypochromasia 1+; Lymphocytes 23 % (20-55); Microcytosis 1+; Platelet Estimate Adequate; Segmented Neutrophils 55 % (50-85); Total Cells Counted 100
[2019-09-24] MEDS: CALCIUM (CARBONATE)/VITAMIN D 600 MG-400 UNIT TABLET PEG SCH ×2 (10:28→21:00)
[2019-09-24] MEDS: OMEPRAZOLE ODT 20 MG TABLET PEG SCH (10:28)
[2019-09-24] MEDS: PHENobarbital 30 MG TABLET PEG SCH ×3 (10:28→21:00)
[2019-09-24] MEDS: ENOXAPARIN 40 MG/0.4 ML SYRINGE SUBCUT SCH (10:29)
[2019-09-24] MEDS: levETIRAcetam LIQUID 100 MG/ML 30 ML/BOTTLE PEG SCH ×2 (10:30→21:00)
[2019-09-24] MEDS ORDERED: FERRIC GLUCONATE COMPLEX 125 MG in SODIUM CHLORIDE 0.9% 100 ML IV ONE (15:00)
[2019-09-24] MEDS: CETIRIZINE 10 MG TABLET PEG SCH (21:00)
[2019-09-25] MEDS: INSULIN LISPRO 100 UNIT/ML SUBCUT SCH ×4 (01:06→17:24)
[2019-09-25] MEDS: PIPERACILLIN/TAZOBACTAM 3,375 MG in SODIUM CHLORIDE 0.9% 100 ML IV SCH (01:58)
[2019-09-25] MEDS: VALPROIC ACID 250 MG/5 ML UDCUP PEG SCH ×3 (06:06→21:11)
[2019-09-25 06:47] LABS: Calcium 8.6 MG/DL (8.5-10.1); Osmolality,Calculated 306.4 MOS/KG (273-304)
[2019-09-25 07:17] LABS: Basophils # 0.1 10*3/uL (0.0-0.2); Basophils % 1.8 % (0.0-0.8); Hematocrit 27.1 VOL% (42.0-52.0); Immature Granulocytes % 1.3 %; Immature Granulocytes Absolute 0.05 #; Lymphocytes # 0.6 10*3/uL (1.4-4.0); Lymphocytes % 15.9 % (21.2-54.2); Mean Corpuscular HGB Conc 34.3 GM/DL (32-36); Mean Corpuscular Volume 101.9 FL (87-102); Mean Platelet Volume 12.7 FL (9.6-12.0); Monocytes % 1.8 % (1.7-12.7); NRBC # 0.04 10*3/uL; Neutrophils % 79.2 % (38.7-73.9); Platelet Count 241 T/CUMM (130-400); Red Blood Count 2.66 MC/CUMM (3.8-5.5); Red Cell Distribution Width 15.9 % (9.3-17.3); White Blood Count 3.9 T/CUMM (4-12)
[2019-09-25 07:18] LABS: Hemoglobin 9.3 GM/DL (14.0-18.0)
[2019-09-25 07:27] LABS: Band Neutrophils 22 % (0-10); Hypochromasia 1+; Lymphocytes 18 % (20-55); Microcytosis Slight; Myelocytes 2 %; Platelet Estimate Adequate; Segmented Neutrophils 57 % (50-85); Total Cells Counted 100
[2019-09-25] MEDS ORDERED: METOPROLOL TARTRATE 5 MG/5 ML VIAL IV PRN (08:14)
[2019-09-25] MEDS ORDERED: DOCUSATE SODIUM 100 MG/10 ML UDCUP PO PRN (08:16)
[2019-09-25] MEDS: ENOXAPARIN 40 MG/0.4 ML SYRINGE SUBCUT SCH (08:30)
[2019-09-25] MEDS: OMEPRAZOLE ODT 20 MG TABLET PEG SCH (08:30)
[2019-09-25] MEDS: PHENobarbital 30 MG TABLET PEG SCH ×3 (08:31→20:08)
[2019-09-25] MEDS: CALCIUM (CARBONATE)/VITAMIN D 600 MG-400 UNIT TABLET PEG SCH ×2 (08:31→20:08)
[2019-09-25] MEDS: POTASSIUM CHLORIDE 20 MEQ/15 ML UDCUP PER TUBE PRN (08:32)
[2019-09-25] MEDS: levETIRAcetam LIQUID 100 MG/ML 30 ML/BOTTLE PEG SCH ×2 (08:37→20:09)
[2019-09-25] MEDS: ACETAMINOPHEN 325 MG/10.15 ML UDCUP PER TUBE PRN ×3 (09:40→20:08)
[2019-09-25] MEDS: DEXT 5% NACL 0.45% KCL 20 MEQ 20 MEQ/1,000 ML BAG IV SCH (09:44)
[2019-09-25] MEDS: ZINC SULFATE 220 MG CAPSULE PO SCH (11:30)
[2019-09-25] MEDS: LEVOFLOXACIN INJ 500 MG in PREMIX 1 EACH IV SCH (11:35)
[2019-09-25 11:47] LABS: ABG Base Excess -0.6 MMOL/L (-2.5-2.5); ABG HCO3 23.9 MMOL/L (20-26); ABG Oxygen Saturation 95.6 % (95-100); ABG PCO2 35.3 MM HG (35-48); ABG PH 7.428 (7.35-7.45); ABG PO2 76.3 MM HG (80-95); ABG TCO2 21.4 MMOL/L (23-27)
[2019-09-25 11:48] LABS: Pt O2 Delivery Device Other
[2019-09-25] MEDS: CLINDAMYCIN INJ 600 MG in PREMIX 1 EACH IV SCH ×2 (14:45→20:07)
[2019-09-25] MEDS: DEXAMETHASONE 4 MG/1 ML VIAL IV SCH (17:11)
[2019-09-25] MEDS: CETIRIZINE 10 MG TABLET PEG SCH (20:09)
[2019-09-26] MEDS: INSULIN LISPRO 100 UNIT/ML SUBCUT SCH ×4 (00:39→18:16)
[2019-09-26] MEDS: ACETAMINOPHEN 325 MG/10.15 ML UDCUP PER TUBE PRN ×3 (03:51→19:59)
[2019-09-26] MEDS: CLINDAMYCIN INJ 600 MG in PREMIX 1 EACH IV SCH ×3 (04:20→20:01)
[2019-09-26 05:15] LABS: Basophils % 0.9 % (0.0-0.8); Hematocrit 19.8 VOL% (42.0-52.0); Immature Granulocytes % 1.1 %; Immature Granulocytes Absolute 0.05 #; Lymphocytes # 0.7 10*3/uL (1.4-4.0); Lymphocytes % 15.7 % (21.2-54.2); Mean Corpuscular HGB Conc 39.9 GM/DL (32-36); Mean Corpuscular Volume 108.2 FL (87-102); Mean Platelet Volume 12.9 FL (9.6-12.0); Monocytes % 2.8 % (1.7-12.7); NRBC # 0.02 10*3/uL; Neutrophils % 79.5 % (38.7-73.9); Red Blood Count 1.83 MC/CUMM (3.8-5.5); Red Cell Distribution Width 17.2 % (9.3-17.3); White Blood Count 4.6 T/CUMM (4-12)
[2019-09-26 05:19] LABS: Hemoglobin 7.9 GM/DL (14.0-18.0); Platelet Count 196 T/CUMM (130-400)
[2019-09-26 05:47] LABS: Calcium 8.6 MG/DL (8.5-10.1); Osmolality,Calculated 323.2 MOS/KG (273-304)
[2019-09-26 06:00] LABS: Band Neutrophils 13 % (0-10); Hypochromasia 1+; Lymphocytes 13 % (20-55); Microcytosis 1+; Nucleated Red Blood Cells 2 (0-5); Platelet Estimate Adequate; Segmented Neutrophils 71 % (50-85); Total Cells Counted 100
[2019-09-26] MEDS: VALPROIC ACID 250 MG/5 ML UDCUP PEG SCH ×3 (06:15→21:07)
[2019-09-26] MEDS: DEXT 5% NACL 0.45% KCL 20 MEQ 20 MEQ/1,000 ML BAG IV SCH (06:15)
[2019-09-26] MEDS: FERROUS SULFATE 300 MG/5 ML UDCUP PEG SCH (09:00)
[2019-09-26] MEDS: DEXAMETHASONE 4 MG/1 ML VIAL IV SCH (09:00)
[2019-09-26] MEDS: ENOXAPARIN 40 MG/0.4 ML SYRINGE SUBCUT SCH ×2 (09:00→20:01)
[2019-09-26] MEDS: levETIRAcetam LIQUID 100 MG/ML 30 ML/BOTTLE PEG SCH ×2 (09:01→20:01)
[2019-09-26] MEDS: CALCIUM (CARBONATE)/VITAMIN D 600 MG-400 UNIT TABLET PEG SCH ×2 (09:01→20:00)
[2019-09-26] MEDS: PHENobarbital 30 MG TABLET PEG SCH ×3 (09:02→20:01)
[2019-09-26] MEDS: LEVOFLOXACIN INJ 500 MG in PREMIX 1 EACH IV SCH (09:02)
[2019-09-26] MEDS: OMEPRAZOLE ODT 20 MG TABLET PEG SCH (09:02)
[2019-09-26] MEDS ORDERED: DEXTROSE 5% NACL 0.22% 1,000 ML IV SCH (13:00)
[2019-09-26] MEDS ORDERED: SKIN HEALING OINT (AQUAPHOR) 50 GM TUBE TOP SCH (15:00)
[2019-09-26] MEDS: CETIRIZINE 10 MG TABLET PEG SCH (20:02)
[2019-09-27] MEDS: INSULIN LISPRO 100 UNIT/ML SUBCUT SCH ×4 (00:03→17:30)
[2019-09-27] MEDS: ACETAMINOPHEN 325 MG/10.15 ML UDCUP PER TUBE PRN ×2 (00:09→04:50)
[2019-09-27] MEDS ORDERED: SODIUM CHLORIDE 0.9% 250 ML IV ONE (00:38)
[2019-09-27 01:11] LABS: ABG Base Excess -3.4 MMOL/L (-2.5-2.5); ABG HCO3 21.4 MMOL/L (20-26); ABG PCO2 31.1 MM HG (35-48); ABG PH 7.422 (7.35-7.45); ABG PO2 54.3 MM HG (80-95); ABG TCO2 18.8 MMOL/L (23-27)
[2019-09-27 01:22] LABS: Basophils % 0.7 % (0.0-0.8); Hematocrit 23.1 VOL% (42.0-52.0); Hemoglobin 8.3 GM/DL (14.0-18.0); Immature Granulocytes % 0.9 %; Immature Granulocytes Absolute 0.04 #; Lymphocytes # 0.8 10*3/uL (1.4-4.0); Lymphocytes % 18.2 % (21.2-54.2); Mean Corpuscular HGB Conc 35.9 GM/DL (32-36); Mean Corpuscular Volume 106.9 FL (87-102); Mean Platelet Volume 12.8 FL (9.6-12.0); Monocytes % 1.9 % (1.7-12.7); NRBC # 0.11 10*3/uL; Neutrophils % 78.3 % (38.7-73.9); Platelet Count 162 T/CUMM (130-400); Red Blood Count 2.16 MC/CUMM (3.8-5.5); Red Cell Distribution Width 17.2 % (9.3-17.3); White Blood Count 4.2 T/CUMM (4-12)
[2019-09-27 01:34] LABS: Calcium 8.8 MG/DL (8.5-10.1); Osmolality,Calculated 323.4 MOS/KG (273-304)
[2019-09-27] MEDS ORDERED: DEXTROSE 5% NACL 0.22% 1,000 ML IV SCH (02:00)
[2019-09-27] MEDS: CLINDAMYCIN INJ 600 MG in PREMIX 1 EACH IV SCH ×3 (04:49→21:20)
[2019-09-27] MEDS: VALPROIC ACID 250 MG/5 ML UDCUP PEG SCH ×3 (05:05→21:34)
[2019-09-27 06:05] LABS: Band Neutrophils 21 % (0-10); Lymphocytes 24 % (20-55); Metamyelocytes 1 %; Myelocytes 2 %; Segmented Neutrophils 47 % (50-85); Total Cells Counted 100
[2019-09-27 06:06] LABS: Anisocytosis 1+; Platelet Estimate Normal
[2019-09-27] MEDS ORDERED: ETOMIDATE 20 MG/10 ML VIAL IV ONE ×3 (07:21→07:58)
[2019-09-27] MEDS ORDERED: SUCCINYLCHOLINE 200 MG/10 ML VIAL ONE ×2 (07:21→07:58)
[2019-09-27] MEDS ORDERED: DEXAMETHASONE 4 MG/1 ML VIAL IV SCH (07:31)
[2019-09-27] MEDS ORDERED: SUCCINYLCHOLINE 200 MG/10 ML VIAL IV ONE ×2 (07:36→08:00)
[2019-09-27] MEDS: PHENYLEPHRINE DRIP 40 MG/250 ML PREMIX IV PRN ×4 (08:10→14:24)
[2019-09-27] MEDS ORDERED: PANTOPRAZOLE 40 MG VIAL IV SCH (09:00)
[2019-09-27] MEDS ORDERED: MIDAZOLAM 100 MG in SODIUM CHLORIDE 0.9% 80 ML IV PRN (09:17)
[2019-09-27] MEDS: LEVOFLOXACIN INJ 500 MG in PREMIX 1 EACH IV SCH (10:00)
[2019-09-27] MEDS: FERROUS SULFATE 300 MG/5 ML UDCUP PEG SCH (10:01)
[2019-09-27] MEDS: ENOXAPARIN 40 MG/0.4 ML SYRINGE SUBCUT SCH (10:02)
[2019-09-27] MEDS: CALCIUM (CARBONATE)/VITAMIN D 600 MG-400 UNIT TABLET PEG SCH ×2 (10:02→21:33)
[2019-09-27] MEDS: PHENobarbital 30 MG TABLET PEG SCH ×3 (10:06→21:34)
[2019-09-27] MEDS: levETIRAcetam LIQUID 100 MG/ML 30 ML/BOTTLE PEG SCH ×2 (10:09→21:34)
[2019-09-27] MEDS ORDERED: SODIUM CHLORIDE 0.9% 1,000 ML IV ONE (10:20)
[2019-09-27] MEDS ORDERED: NOREPINEPHRINE 4 MG/4 ML VIAL IV ONE (10:33)
[2019-09-27] MEDS: NOREPINEPHRINE 8 MG in SODIUM CHLORIDE 0.9% 242 ML IV PRN ×2 (10:59→14:07)
[2019-09-27] MEDS: ZINC SULFATE 220 MG CAPSULE PO SCH (11:04)
[2019-09-27 11:24] LABS: ABG Base Excess -23.2 MMOL/L (-2.5-2.5); ABG HCO3 7.5 MMOL/L (20-26); ABG Oxygen Saturation 92.8 % (95-100); ABG PCO2 44.3 MM HG (35-48); ABG TCO2 8.9 MMOL/L (23-27)
[2019-09-27 12:18] LABS: Calcium 8.6 MG/DL (8.5-10.1); Osmolality,Calculated 316.4 MOS/KG (273-304)
[2019-09-27] MEDS ORDERED: DEXTROSE 10% 250 ML IV SCH (12:32)
[2019-09-27] MEDS ORDERED: SODIUM BICARBONATE 50 MEQ/50 ML VIAL IV ONE (13:05)
[2019-09-27] MEDS: DEXTROSE 5% 1,000 ML IV SCH ×2 (13:46→23:10)
[2019-09-27] MEDS ORDERED: NOREPINEPHRINE 16 MG in SODIUM CHLORIDE 0.9% 234 ML IV PRN (14:33)
[2019-09-27] MEDS ORDERED: PHENYLEPHRINE INJ 160 MG in SODIUM CHLORIDE 0.9% 234 ML IV PRN (14:36)
[2019-09-27] MEDS ORDERED: METOCLOPRAMIDE 10 MG/2 ML VIAL IV SCH (18:00)
[2019-09-27] MEDS ORDERED: DEXTROSE 10% 250 ML BAG IV PRN (18:00)
[2019-09-27] MEDS ORDERED: HEPARIN DRIP 25,000 UNITS/500 ML PREMIX IV SCH (18:00)
[2019-09-27 18:45] VITALS: BP 53/40
[2019-09-27] MEDS: CETIRIZINE 10 MG TABLET PEG SCH (21:34)
[2019-09-28] MEDS ORDERED: MULTIVITAMIN LIQUID (CENTRUM) 60 ML BOTTLE PER TUBE SCH (09:00)
== END 2019-09-27 22:42 | disposition expired | DRG 871 ==
LOC: N.ED 22:55 → SUATTDRO 09-20 00:34 → N.EDINP 09-20 00:34 → N.CC 09-20 01:47 → N.2E 09-20 18:11 → N.CC 09-27 07:18
PROVIDERS: ADMIT Internal Medicine; ATTEND Internal Medicine